=== PATIENT | male | born 1945 | race Caucasian/White ===

== ENCOUNTER 2023-10-30 13:31 | Emergency (ER) | payer MEDICARE, OTHER ==
[~2023-10-30] VITALS: Ht 177.8 cm; Wt 69.5 kg
[2023-10-30] MEDS ORDERED: FLOMAX0.4 MG PO (14:31)
[2023-10-30 14:34] LABS: URINE COLOR YELLOW (YELLOW)
[2023-10-30 14:35] LABS: PH-URINE 5.5 (5.0 - 8.0); URINE APPEARANCE CLEAR (CLEAR); URINE BILIRUBIN NEGATIVE (NEGATIVE); URINE BLOOD 2+ (NEGATIVE); URINE GLUCOSE NEGATIVE (NEGATIVE); URINE KETONE NEGATIVE (NEGATIVE); URINE LEUKOCYTE ESTERASE NEGATIVE (NEGATIVE); URINE NITRATE NEGATIVE (NEGATIVE); URINE PROTEIN(semi-quant) 2+ (NEGATIVE); URINE WBC 0-1 /hpf (0-3)
[2023-10-30 15:00] VITALS: BP 118/89
== END 2023-10-30 15:08 | disposition home or self-care (01) ==
LOC: ED 13:31
PROVIDERS: Family Medicine
DX: N40.1 Benign prostatic hyperplasia with lower urinary tract symptoms (principal); R33.8 Other retention of urine

== ENCOUNTER 2023-11-09 21:37 | Emergency (ER) | payer MEDICARE, OTHER ==
[~2023-11-09] VITALS: Ht 177.8 cm; Wt 68.2 kg
[~2023-11-09 21:37] MED LIST: FLOMAX0.4 MG PO
[2023-11-09 22:29] LABS: BASO # 0.02 K/mm3 (0.02-0.10); EOS # 0.31 K/mm3 (0.04-0.40); EOS % 3.8 % (0.0-4.0); HEMATOCRIT 39.3 % (42.0-52.0); HEMOGLOBIN 13.2 g/dL (13.5-18.0); MEAN CELL VOLUME 97 fl (78-100); MEAN CORPUSCULAR HEMOGLOBIN 32 pg (27-31); MEAN CORPUSCULAR HGB CONC 34 g/dL (33-37); MEAN PLATELET VOLUME 8.9 fl (7.4-10.4); MONO # 0.77 K/mm3 (0.20-0.80); NEU # 5.35 K/mm3 (1.40-6.50); PLATELET COUNT 261 K/mm3 (130-400); RED BLOOD COUNT 4.07 M/mm3 (4.20-5.60); RED CELL DISTRIBUTION WIDTH 12.8 % (11.5-14.5); WHITE BLOOD COUNT 8.1 K/mm3 (4.8-10.8)
[2023-11-09 22:40] LABS: ALBUMIN 3.5 g/dL (3.4-4.8); CALCIUM 9.1 mg/dL (8.3-10.5)
[2023-11-09 22:41] LABS: TOTAL PROTEIN 6.5 g/dL (6.2-8.1)
[2023-11-09 22:49] LABS: TOTAL BILIRUBIN 0.3 mg/dL (0.2-1.2)
[2023-11-09 23:17] LABS: URINE APPEARANCE TURBID (CLEAR); URINE BILIRUBIN NEGATIVE (NEGATIVE); URINE COLOR RED (YELLOW); URINE GLUCOSE NEGATIVE (NEGATIVE); URINE KETONE NEGATIVE (NEGATIVE); URINE PROTEIN(semi-quant) 3+ (NEGATIVE)
[2023-11-09 23:18] LABS: URINE BLOOD 3+ (NEGATIVE); URINE NITRATE NEGATIVE (NEGATIVE); URINE WBC >50 /hpf (0-3)
[2023-11-09] MEDS ORDERED: Sulfamethoxazole/Trimethoprim 800-160 MG TAB PO ONE (23:30)
[2023-11-09] MEDS ORDERED: BACTRIM DS TAB1 EACH PO (23:36)
[2023-11-09 23:48] VITALS: BP 142/103
== END 2023-11-09 23:51 | disposition home or self-care (01) ==
LOC: ED 21:37
PROVIDERS: Registered Nurse
DX: N39.0 Urinary tract infection, site not specified (principal)